=== PATIENT | male | born 1950 | race Caucasian/White ===

== ENCOUNTER 2017-02-23 07:25 | Day surgery (SDC) | payer BC, MEDICARE ==
[~2017-02-23] VITALS: Ht 175.3 cm; Wt 89.1 kg
--- NOTE | ~2017-02-23 | OR ---
PATIENT'S NAME: CARLOS MANUEL KUNZ [facility] AGE: 67 Y [address] ROOM: [place], [place] [address] LOCATION: [facility] ADMIT DATE: 02/23/2017 OR/Procedure Report DISCHARGE DATE: 02/23/2017 FAMILY PHYSICIAN: German Childs MD ATTENDING PHYSICIAN: Earlene Piña SURGEON: Earlene Piña MD COB SAWYER: Irwin Hess MD-Student. DATE OF PROCEDURE: 02/23/2017 PREOPERATIVE DIAGNOSES: 1. 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 2. Right nasal sidewall lesion. POSTOPERATIVE DIAGNOSES: 1. 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 2. Right nasal sidewall lesion. PROCEDURE PERFORMED: 1. Wide local excision of left nasal soft tissue triangle and tip basal carcinoma measuring 1.5 cm in greatest dimension. 2. Wide local excision of right nasal sidewall lesion measuring 1.5 cm. 3. Composite graft taken from the left ear measuring 1.5 cm. ANESTHESIA: Monitored anesthesia care. BLOOD LOSS: Less than 5 mL. FINDINGS: The patient had basal carcinoma of the left nasal sidewall. Frozen section showed negative margins. There was a close margin on the medial aspect and another cuff of tissue was taken along the columella. INDICATION: Mr. Kunz is a 67-year-old male with biopsy-proven basal carcinoma of the left nasal soft tissue triangle. Additionally, he has a lesion on the right nasal side wall which he would to remove. DESCRIPTION OF PROCEDURE: The patient was seen in the preop holding area. Informed and written consent was obtained from the patient. After fully acknowledging the risks, benefits, and alternatives, the patient wished to proceed. The patient was taken to the operating room, placed on the operating room table. Monitored anesthesia care was initiated. A time-out was performed identifying the patient, as well as procedure to be performed. Bilateral sequential compression stockings were placed. We began by marking 4 mm margins around the lesion on the left nasal soft tissue triangle. An PATIENT'S NAME: CARLOS MANUEL KUNZ [facility] AGE: 67 Y [address] ROOM: [place], [place] [address] LOCATION: [facility] ADMIT DATE: 02/23/2017 OR/Procedure Report DISCHARGE DATE: 02/23/2017 FAMILY PHYSICIAN: German Childs MD ATTENDING PHYSICIAN: Earlene Piña ellipse was drawn around the right nasal sidewall lesion, and a wedge was drawn along the left ear helical root. All of these areas were infiltrated with 1% lidocaine with 1:100,000 parts of epinephrine and 0.25% Marcaine. The patient was then prepped and draped in normal sterile fashion. We began by excising the left nasal soft tissue triangle lesion. We used a 15 blade to incise through the skin, took it down to the perichondrium. This was oriented and passed off for frozen analysis. Hemostasis was achieved. The frozen section showed negative margins, so we moved forward with our reconstruction. We harvested a composite graft taken from the left ear. Helical root. An 11 blade was used to incise through our premarked incision. This was trimmed and then was prepared for inset into the nasal soft tissue triangle defect. The intranasal portion was secured with 5-0 Monocryl suture in an interrupted fashion. The cartilage was tucked under the skin muscle flaps of the nose and then the outer portion of the nose was closed with 6-0 nylon in simple interrupted fashion. We then closed the left helical donor site defect. We used 5-0 Monocryl to close the lower skin and cartilage. We used 6-0 nylon to close the outer skin. This allowed a nice approximation of the wound edges. Next, we excised the lesion along the right nasal sidewall. The elliptical incision that was premarked was incised with a 15 blade down to the subcutaneous fat. This was elevated out and passed off for permanent pathology. Some undermining was performed to allow for tension-free closure. The skin was then closed with 5-0 Monocryl in a deep buried fashion followed by 5-0 fast gut in a simple running fashion. This marked the conclusion of the procedure. All sponge and needle counts were correct x2. The patient was passed back to Anesthesia, where he was awoke without difficulty and transferred to the PACU in stable condition. Dr. Piña was present for and scrubbed during the entire procedure. IRWIN HESS MD FOR EARLENE PIÑA MD JY/modl /[id number] CC: Earlene Piña MD d: 02/23/17 1935 t: 03/03/17 1027, OPERATIVE SUMMARY
[~2017-02-23 07:25] MED LIST: ADVAIR 100-501 EACH INH; ALBUTEROL2.5 MG/31 INH; ASPIRIN EC81 MG PO; BYSTOLIC10 MG PO; LIPITOR40 MG PO; MOBIC15 MG PO; PRINIVIL (ZESTRI5 MG PO; PROAIR HFA8.5 GM INH; SPIRIVA HANDIHA1 KIT INH
[2017-02-23] MEDS ORDERED: NORCO 10-325 T1 EACH PO (10:50)
== END 2017-02-23 11:10 | disposition disaster alternative care site (69) ==
LOC: GSDC 07:25
PROC: 0HB1XZZ Excision of Face Skin, External Approach (ICD-10-PCS; principal; 2017-02-23)
PROC: 09RKX7Z Replacement of Nasal Mucosa and Soft Tissue with Autologous Tissue Substitute, External Approach (ICD-10-PCS; 2017-02-23)
DX: C44.311 Basal cell carcinoma of skin of nose (principal); D23.39 Other benign neoplasm of skin of other parts of face; E78.2 Mixed hyperlipidemia; I25.10 Atherosclerotic heart disease of native coronary artery without angina pectoris; J44.9 Chronic obstructive pulmonary disease, unspecified; I10 Essential (primary) hypertension; I73.9 Peripheral vascular disease, unspecified; Z95.1 Presence of aortocoronary bypass graft; Z79.891 Long term (current) use of opiate analgesic; Z98.890 Other specified postprocedural states
CPT/HCPCS: J0690; J2001; J7120